=== PATIENT | male | born 1950 | race Caucasian/White ===

== ENCOUNTER → 2018-09-12 | Outpatient (CLI) | payer MEDICARE ==
[~2018-09-12] MED LIST: CLONIDINE0.1 PO; COLACE 100 MG100 MG PO; COUMADIN 4 MG TA4 M1 PO; COUMADIN6 MG PO; COZAAR 50 MG TA50 M2 PO; FOLIC ACID 40400 MCG PO; INDERAL80 MG PO; LASIX 20 MG TAB20 MG PO; METFORMIN HCL500 MG PO; NAPROSYN500 MG PO; NEXIUM40 MG PO; NORVASC 5 MG TAB5 MG PO; VITAMIN B-12500 MCG PO
[2018-09-12 10:07] LABS: CREATININE 0.9 mg/dL (0.6-1.3)
== END ==
LOC: M.CT 09:24
PROVIDERS: Internal Medicine
DX: R91.1 Solitary pulmonary nodule (principal)

== ENCOUNTER 2018-10-17 10:30 | Observation (INO) | payer MEDICARE ==
[~2018-10-17] VITALS: Ht 177.8 cm; Wt 113.4 kg
[2018-10-17] VITALS (18 sets, daily range): BP systolic 143–184; BP diastolic 61–99
--- NOTE | ~2018-10-17 | D ---
[address] [address] DISCHARGE SUMMARY Name: GARRETTRICARDAHEATH Crocker Room: [address] [place] MKatie#: [id number] Admission: 10/17/18 Attend Phys: Harjinder Moise MD, Discharge: 10/18/18 Date of : 52 Report #: [id number] THIS REPORT FOR: //name// CC: Kvng Moise DATE OF SERVICE: 10/18/2018 FINAL DISCHARGE DIAGNOSES: 1. Abnormal nuclear stress test. 2. Coronary artery disease. 3. Status post percutaneous coronary intervention with angioplasty and stenting of the circumflex at sequential sites. 4. Hypertension. 5. Hypercholesterolemia. 6. Degenerative joint disease. PROCEDURES: 10/17/2018 -- left heart catheterization, left ventriculography, selective coronary arteriography and percutaneous coronary intervention of the circumflex with deployment of 2 drug-eluting stents. HOSPITAL COURSE: The patient is a very pleasant 68-year-old male with underlying hypertension and hypercholesterolemia. He has described marked dyspnea with moderate exertion, which has increased over the last several weeks. Nuclear stress test was abnormal with inducible inferolateral ischemia. Given this data, Dr. Velazquez recommended proceeding with cardiac catheterization, which was undertaken on 10/17/2018. That study revealed a tandem 75 proximal and 90% mid circumflex stenosis with 40% distal narrowing. There were no hemodynamically significant stenoses of the left main, LAD or right coronary artery. Given this data, I deployed 2 drug-eluting stents, one in the proximal circumflex and one in the mid circumflex with a 10 and 0% residual narrowing following the stent deployment with 2 Colon drug-eluting stents deployed respectively. The patient did well post procedurally and ambulated in the hallways without difficulty with good hemostasis at the right femoral site of catheterization. LABORATORY DATA: On 10/18/2018 revealed a sodium 138, potassium 4.0, BUN 13, creatinine 0.8. Hemoglobin 14.6, white blood cell count 6000 with 207,000 platelets. Cholesterol 206, triglycerides 107, HDL 36, LDL 149 mg percent. DISCHARGE MEDICATIONS: The patient was discharged to home on the following medications: Amlodipine 10 mg daily, clonidine 0.1 mg as needed, vitamin B12 at 500 mcg b.i.d., folic acid, B complex vitamin 400 mcg b.i.d., metformin 500 [place] [address] DISCHARGE SUMMARY Name: HIRENLINDAGregRICARDAHEATH Crocker Room: [address] Janice#: [id number] Admission: 10/17/18 Attend Phys: Harjinder Moise MD, Discharge: 10/18/18 Date of : 52 Report #: [id number] daily to be started on 10/20/2018, prasugrel or Effient 10 mg daily with a 60 mg dose given buddy-procedurally, propranolol 80 mg daily, valsartan 40 mg daily, warfarin in his usual dose schedule monitored by at home protimes, Nexium 40 mg daily, Naprosyn 500 mg as needed, usually no more than once per day; omeprazole 20 mg on a p.r.n. basis. Given the elevated LDL cholesterol, initiated therapy with atorvastatin at 40 mg daily. Thus, the new medications added to his regimen were Effient and atorvastatin. The patient is scheduled to return to see a nurse practitioner in 3 weeks. At that point, clinical data will be reviewed and low-dose aspirin will be discontinued if the patient is clinically stable with a plan to see Dr. Velazquez in 6 weeks for clinical followup. By: [id number] Moise MD, [facility] /nt
[~2018-10-17 10:30] MED LIST changes: -NORVASC 5 MG TAB5 MG PO; +NORVASC5 MG PO
[2018-10-17 11:01] LABS: HEMATOCRIT 48.2 % (42.0-52.0); HEMOGLOBIN 16.1 gm/dL (14.0-18.0); MCH 28.4 pg (26.0-34.0); MCHC 33.5 g/dL (28.0-37.0); MCV 84.6 fL (80.0-100.0); MPV 8.9 fl. (7.2-11.1); RBC 5.69 mil/uL (4.50-6.00); RDW-CV 13.5 % (10.5-14.5); WBC 5.6 thou/uL (4.0-11.0)
[2018-10-17 11:13] LABS: CALCIUM 8.5 mg/dL (8.5-10.1); CREATININE 0.9 mg/dL (0.6-1.3)
[2018-10-17 11:15] LABS: APTT 32.2 Seconds (25.0-31.3); INR 1.1; PROTIME 11.2 Seconds (9.20-11.50)
[2018-10-17] MEDS ORDERED: B-121000 MCG PO (11:21)
[2018-10-17] MEDS ORDERED: FOLIC ACID1 MG PO (11:22)
[2018-10-17] MEDS ORDERED: NEXIUM 40 MG CA40 M1 PO (11:23)
[2018-10-17] MEDS ORDERED: DIOVAN40 MG PO (11:23)
[2018-10-17] MEDS ORDERED: METFORMIN HCL500 MG PO (11:24)
[2018-10-17] MEDS ORDERED: B-COMPLEX WIT400 MCG PO (11:25)
[2018-10-17] MEDS ORDERED: COUMADIN 5 MG TA5 M1 PO (11:27)
[2018-10-17] MEDS ORDERED: B-12500 MCG PO (11:28)
--- NOTE | 2018-10-17 15:50 | EKG ---
[place] [address] ELECTROCARDIOGRAM REPORT Name: GENA TUCKER Room: [address] M.R.#: [id number] Admission: 10/17/18 Attend Phys: Harjinder Moise MD, Discharge: Date of : 52 Report #: [id number] THIS REPORT FOR: //name// [facility] Test Date: 2018-10-17 Test Time: 11:21:53 Pat Name: GENA TUCKER Department: Room: [facility] Gender: M Lamp Wirer: : 1950 Requested By: Harjinder Moise Order Number: [id number] Sheela MD: Harjinder Moise Measurements Intervals [place] Rate: 54 P: 19 NE: 170 QRS: -7 QRSD: 104 T: 13 QT: 443 QTc: 420 Interpretive Statements Sinus rhythm Atrial premature complexes Compared to ECG 06/24/2006 15:01:48 Atrial premature complex(es) now present Left ventricular hypertrophy no longer present T-wave abnormality no longer present Possible ischemia no longer present Electronically Signed On 10-17-2018 15:50:24 FACULTY RESEARCH PHYSICIAN by Harjinder Moise [email or web address] <ELECTRONICALLY SIGNED> By: Harjinder Moise MD, [facility] 10/17/18 1550 1121 1121 Harjinder Moise MD, [facility] /EPI
--- NOTE | 2018-10-17 15:53 | EKG ---
[place] [address] ELECTROCARDIOGRAM REPORT Name: GENA TUCKER Room: [address] M.R.#: [id number] Admission: 10/17/18 Attend Phys: Harjinder Moise MD, Discharge: Date of : 52 Report #: [id number] THIS REPORT FOR: //name// [facility] Test Date: 2018-10-17 Test Time: 14:24:19 Pat Name: GENA TUCKER Department: Room: [facility] Gender: M Process Helper: : 1950 Requested By: Harjinder Moise Order Number: [id number] Sheela MD: Harjinder Moise Measurements Intervals [place] Rate: 50 P: 24 NC: 165 QRS: -2 QRSD: 108 T: 28 QT: 472 QTc: 431 Interpretive Statements Sinus rhythm Compared to ECG 06/24/2006 15:01:48 Left ventricular hypertrophy no longer present T-wave abnormality no longer present Electronically Signed On 10-17-2018 15:52:51 RACECAR DRIVER by Harjinder Moise [email or web address] <ELECTRONICALLY SIGNED> By: Harjinder Moise MD, [facility] 10/17/18 1552 1424 1424 Harjinder Moise MD, [facility] /EPI
[2018-10-17] MEDS ORDERED: PRILOSEC OTC20 MG PO (16:43)
--- NOTE | 2018-10-17 17:20 | NUR ---
VSS, ASSUMED CARE OF PT FROM DRY CLIPPER TENDER, ASSESSMENT PERFOMRED AND CHARTED, FALL PRECAUTIONS IN PLACE AND CALL LIGHT IN REACH, PT IS IN BED UNTIL 7PM, RIGHT GRION CATH SITE IS C/D/I, PT IS ON RA, A&O4, SR ON MONITOR, DENIES ANY PAIN WILL FOLLOW WITH PLAN OF CARE.
[2018-10-18] VITALS (7 sets, daily range): BP systolic 152–164; BP diastolic 62–72
[2018-10-18 04:54] LABS: HEMOGLOBIN 14.6 gm/dL (14.0-18.0); MCH 28.5 pg (26.0-34.0); MCHC 34.1 g/dL (28.0-37.0); MCV 83.7 fL (80.0-100.0); MPV 9.2 fl. (7.2-11.1); RBC 5.13 mil/uL (4.50-6.00); RDW-CV 13.6 % (10.5-14.5)
[2018-10-18 05:10] LABS: ALBUMIN 3.3 g/dL (3.4-5.0); ALKALINE PHOSPHATASE 57 U/L (46-116); ANION GAP 9 mmol/L (7-16); BUN 13 mg/dL (7-18); CALCIUM 8.4 mg/dL (8.5-10.1); CHLORIDE 103 mmol/L (98-107); CHOLESTEROL 206 mg/dL (<200); CO2 26 mmol/L (21-32); CREATININE 0.8 mg/dL (0.6-1.3); GLUCOSE 142 mg/dL (70-99); HDL CHOLESTEROL 36 mg/dL (>40); LDL CHOLESTEROL 149 mg/dL (<100); SGOT 17 U/L (15-37); SGPT 19 U/L (30-65); SODIUM 138 mmol/L (136-145); TC:HDL 5.7 Ratio (Not establshd); TOTAL BILIRUBIN 0.9 mg/dL (<0.1-1.0); TOTAL PROTEIN 6.2 g/dL (6.4-8.2); TRIGLYCERIDE 107 mg/dL (<150); VLDL 21 mg/dL (<40)
[2018-10-18 05:11] LABS: SERUM ASSESSMENT CLEAR
[2018-10-18 05:12] LABS: TROPONIN-I LEVEL 1.02 ng/mL (<0.06)
--- NOTE | 2018-10-18 06:42 | NUR ---
PROGRESSING TOWARDS GOALS, UP AD HARRY WITH SLOW STEADY GAIT, DENIES PAIN OR DISCOMFORT, OFF BR S/P CARDIAC CATHETERIZATION ON 10/17/18 AT 1900. DRESSING RIGHT GROIN ANGIOSEAL C/D/I, RIGHT GROIN REMAINS SOFT WITHOUT S/S OF HEMATOMA. SERUM NA IMPROVED FROM 135 ON 10/17/18 TO WNL 138 THIS AM. RESTING QUIELTY WITH EYES CLOSED MOST OF NOC, EASILY AROUSABLE TO VERBAL STIMULI, DENIES NEEDS AT PRESENT TIME, SB/SR TRACING HAT DESIGNER HR HIGH 50'S TO HIGH 60'S. PERIPHERAL IV SALINE LOCKED. CALL LIGHT IN REACH AT ALL TIMES.
[2018-10-18] MEDS ORDERED: ADULT ASPIRIN81 MG PO (11:05)
[2018-10-18] MEDS ORDERED: EFFIENT10 MG PO (11:12)
[2018-10-18] MEDS ORDERED: ATORVASTATIN CA40 MG PO (11:19)
--- NOTE | 2018-10-18 11:32 | CARD ---
[address] [address] CARDIAC CATH REPORT Name: GENA TUCKER Room: [address] M.RJoe#: [id number] Admission: 10/17/18 Attend Phys: Harjinder Moise MD, Discharge: Date of : 52 Report #: [id number] THIS REPORT FOR: //name// APPROVED REPORT Study performed: 10/17/2018 10:46:51 Patient Details Patient Status: Out-Patient Room #: The patient is a 68 year-old male Event Personnel Harjinder Moise Nail Galvanizer, Charley Carlton RN Mold Setter, Rina Wagoner Haley, Jessica RTR Monitor, Wyatt Mendoza Monitor, Sandra Crawley RN Mold Setter Procedures Performed Art Access - R femoral artery* Left Heart Cath w/or w/o Coronaries C LINO Place w/wo Plasty Single CIRC Hemostasis w/ Angioseal Indication Positive stress test Risk Factors Hypercholesterolemia, Hypertension Admission/Lab Medications/Medications given during procedure Aspirin, Platelet Aff. Inhib., Angiomax bolus and infusion Procedure Narrative The patient was brought electively to the Cardiac Catheterization Laboratory and was prepped and draped in a sterile manner. The right femoral was infiltrated with 2% Lidocaine subcutaneous anesthesia. A [place] 6 FR sheath was inserted into the right femoral artery. Coronary angiography was performed using coronary diagnostic catheters. The right coronary system was accessed and visualized with a Diagnostic 6Fr JR4 catheter. The left coronary system was accessed and visualized with a Diagnostic 6Fr JL4 catheter. The left ventricle was accessed and visualized with a Diagnostic 6Fr straight pightail catheter. Left ventricular/Aortic Valve gradient assessed via catheter pullback. Pre-demployment femoral angiogram was performed . Closure device was deployed with a Fr Angioseal STS 6Fr. Hemostasis was obtained with manual pressure following sheath removal without any complications. The patient tolerated the [place] [address] CARDIAC CATH REPORT Name: GENA TUCKER Room: [address] M.R.#: [id number] Admission: 10/17/18 Attend Phys: Harjinder Moise MD, Discharge: Date of : 52 Report #: [id number] were no complications associated with the procedure. There was no hematoma. Intraoperative Conscious Sedation Sedation start time: 1149 Case end Time: 1300 Fentanyl 50 mcg Versed 3 mg Fluoro Time: 16.8 minutes Dose: DAP [id number] cGycm2 2538 mGy Contrast Type and Amount: Visipaque 400 ml Diagnostic Cath Left Main 10% distal narrowing LAD Tortuosity with 30% mid vessel narrowing Circumflex Moderate size nondominant vessel with 75% proximal 90% mid and 40% distal stenosis Right Coronary Dominant vessel with 0% narrowing Left Ventriculography The left ventricle is normal in size with normal contractility. The left ventricular ejection fraction is estimated to be 60%. Left ventricular wall motion abnormalities are not present. There is no mitral insufficiency. Hemodynamics The aortic pressure is 176/73 mmHg with a mean of 109 mmHg. The left ventricular end diastolic pressure is 12 mmHg. Pullback from the left ventricle to the aorta revealed no gradient across the aortic valve. PCI Technique Lesion Anticoagulation was achieved with Angiomax. Percutaneous coronary intervention was performed on the mid circumflex artery segment. The lesion stenosis prior to intervention was 90% with TERESA 3 flow. A 6FR XB 3.0 100CM Guide Catheter was used to engage the ostium. A BMW 190cm Interventional Guidewire was used to cross the lesion. BALLOON DILATION A Balloon catheter NC Trek RX 2.25 X 8 was inserted and inflated up to 8.00atm for 8seconds. Additional Inflation: 6.00atm for 9seconds. Additional Inflation: 12.00atm for 11seconds. STENT DEPLOYMENT A drug-eluting stent Xience Jessica [id number] was inserted and inflated up to 10.00atm for 10seconds. Additional Inflation: 10.00atm [place] [address] CARDIAC CATH REPORT Name: MATHEWGregGENA Room: [address] M.RJoe#: [id number] Admission: 10/17/18 Attend Phys: Harjinder Moise MD, Discharge: Date of : 52 Report #: [id number] for 11seconds. POST STENT DEPLOYMENT BALLOON DILATION A Balloon catheter NC Trek RX 2.25 X 8 was inserted and inflated up to 14.00atm for 9seconds. Final angiography reveals 0 % stenosis with TERESA 3 flow. PCI Technique Lesion 2 Percutaneous Coronary Intervention was performed on the proximal circumflex artery segment. The lesion stenosis prior to intervention was 75% with TERESA 3 flow. A 6FR XB 3.0 100CM Guide Catheter was used to engage the ostium. A BMW 190cm Interventional Guidewire was used to cross the lesion. Balloon Dilation A Balloon catheter Trek RX 2.25 X 8 was inserted and inflated up to 14.00atm for 8seconds. Stent Deployment A drug-eluting stent Xience Jessica [id number] was inserted and inflated up to 12.00atm for 16seconds. Additional Inflation: 16.00atm for 9seconds. Additional Inflation: 17.00atm for 11seconds. Post Stent Deployment Balloon Dilation A Balloon catheter NC Trek RX 2.25 X 8 was inserted and inflated up to 18.00atm for 9seconds. Final angiography reveals 10 % stenosis with TERESA 3 flow. Conclusion #1 significant coronary artery disease characterized by the following: A 10% distal left main coronary artery narrowing B prominent LAD system with 30% mid LAD narrowing C nondominant circumflex with 75% proximal 90% mid and 40% distal stenosis D dominant right coronary artery with 0% narrowing #2 normal left ventricular systolic function, estimated ejection fraction being 60% [place] [address] CARDIAC CATH REPORT Name: GENA TUCKER Room: [address] [place] M.R.#: [id number] Admission: 10/17/18 Attend Phys: Harjinder Moise MD, Discharge: Date of : 52 Report #: [id number] #3 moderate systemic systolic hypertension with normal left ventricular end-diastolic pressure at rest #4 successful percutaneous coronary intervention with deployment of sequential drug-eluting stents at the sites of 75% proximal and 90% midcircumflex stenosis with 10 and 0% residual narrowing and TERESA-3 flow to the distal vessel Recommendations Cardiac Risk Reduction Program Aggressive Medical Therapy Medications Administered Aspirin (any) Prasugrel Diagnostic Cath Approved by: Harjinder Moise MD Date/Time: 10/18/2018 11:31:00 <ELECTRONICALLY SIGNED> By: Harjinder Moise MD, [facility] 10/18/18 1132 113 113Harjinder Moise MD, FAC /INF
--- NOTE | 2018-10-18 12:13 | NUR ---
ASSUMED PT Care report received from nurse.pt is aox4 sr on alarm security or surveillance monitor. on ra. ready to discharge . dr murray wrote dc orders see chart. dc instructions given. metofrmin to be restarted on saturday. new scri[ts given. pt states understanding. will continue to monitor
--- NOTE | 2018-10-18 12:42 | EKG ---
[place] [address] ELECTROCARDIOGRAM REPORT Name: GENA TUCKER Room: [address] M.R.#: [id number] Admission: 10/17/18 Attend Phys: Harjinder Moise MD, Discharge: Date of : 52 Report #: [id number] THIS REPORT FOR: //name// [facility] Test Date: 2018-10-18 Test Time: 08:05:15 Pat Name: GENA TUCKER Department: Room: [facility] Gender: M Extension Course Coordinator: [facility] : 1950 Requested By: Harjinder Moise Order Number: [id number] Reading MD: Marcelo Osborn Measurements Intervals [place] Rate: 57 P: 20 SD: 165 QRS: -19 QRSD: 106 T: 4 QT: 451 QTc: 440 Interpretive Statements Sinus rhythm Borderline left axis deviation Baseline wander in lead(s) V3 Compared to ECG 10/17/2018 14:24:19 No significant changes Electronically Signed On 10-18-2018 12:42:39 TEACHER OF THE HANDICAPPED by Marcelo Osborn [email or web address] <ELECTRONICALLY SIGNED> By: Marcelo Osborn MD, FACC 10/18/18 1242 0805 0805 Marcelo Osborn MD, [facility] /EPI
== END 2018-10-18 11:40 | disposition home or self-care (01) ==
LOC: M.CL 10:30 → M.TBA-CV 13:21 → M.2W 15:20
PROVIDERS: ADMIT Internal Medicine
DX: I25.10 Atherosclerotic heart disease of native coronary artery without angina pectoris (principal); I10 Essential (primary) hypertension; E78.00 Pure hypercholesterolemia, unspecified; M19.90 Unspecified osteoarthritis, unspecified site

== ENCOUNTER → 2018-10-30 | Outpatient (CLI) | payer MEDICARE ==
[~2018-10-30] MED LIST changes: +ADULT ASPIRIN81 MG PO; +ATORVASTATIN CA40 MG PO; +B-121000 MCG PO; +B-12500 MCG PO; +B-COMPLEX WIT400 MCG PO; +CIPROFLOXACIN500 M1 PO; +COUMADIN 5 MG TA5 M1 PO; +DIOVAN40 MG PO; +EFFIENT10 MG PO; +FLAGYL500 M1 PO; +FLEXERIL PO; +FOLIC ACID1 MG PO; +NEXIUM 40 MG CA40 M1 PO; +NORCO 5-325 TA1 EACH PO; +PRILOSEC OTC20 MG PO; +VITAMIN D3400 UNIT PO
== END ==
LOC: M.ULTRA 13:24
DX: R10.9 Unspecified abdominal pain (principal)

== ENCOUNTER → 2018-10-31 | Outpatient (CLI) | payer MEDICARE ==
[2018-10-31 11:01] LABS: ABSOLUTE BASOPHILS 0.1 thou/uL (0.0-0.2); ABSOLUTE EOSINOPHILS 0.3 thou/uL (0.0-0.7); ABSOLUTE LYMPHOCYTES 1.3 thou/uL (0.8-5.3); ABSOLUTE MONOCYTES 0.4 thou/uL (0.0-1.2); BASOPHILS 1.3 %; EOSINOPHILS 4.5 %; HEMATOCRIT 45.4 % (42.0-52.0); HEMOGLOBIN 15.8 gm/dL (14.0-18.0); LYMPHOCYTES 21.7 %; MCH 29.3 pg (26.0-34.0); MCHC 34.8 g/dL (28.0-37.0); MONOCYTES 6.4 %; MPV 8.8 fl. (7.2-11.1); NUCLEATED RBCS 0 /100WBC; PLATELET COUNT* 267 thou/uL (150-400); POLYS 66.1 %; RBC 5.41 mil/uL (4.50-6.00); RDW-CV 13.4 % (10.5-14.5)
[2018-10-31 11:16] LABS: ALBUMIN 3.8 g/dL (3.4-5.0); CALCIUM 8.6 mg/dL (8.5-10.1); CREATININE 0.9 mg/dL (0.6-1.3); TOTAL BILIRUBIN 0.5 mg/dL (<0.1-1.0); TOTAL PROTEIN 7.3 g/dL (6.4-8.2)
== END ==
LOC: M.LAB 10:41
PROVIDERS: Nurse Practitioner
DX: I10 Essential (primary) hypertension (principal); R10.9 Unspecified abdominal pain; Z86.718 Personal history of other venous thrombosis and embolism

== ENCOUNTER 2018-11-01 06:50 | Emergency (ER) | payer MEDICARE ==
[~2018-11-01] VITALS: Ht 182.9 cm; Wt 113.4 kg
[~2018-11-01 06:50] MED LIST changes: -CIPROFLOXACIN500 M1 PO; -FLAGYL500 M1 PO; -FLEXERIL PO; -NORCO 5-325 TA1 EACH PO; -VITAMIN D3400 UNIT PO
[2018-11-01] MEDS ORDERED: VITAMIN D3400 UNIT PO (07:09)
[2018-11-01 08:01] LABS: URINE BILIRUBIN NEGATIVE (Negative); URINE BLOOD NEGATIVE (Negative); URINE CLARITY CLEAR; URINE COLOR YELLOW; URINE GLUCOSE-RANDOM TRACE (Negative); URINE KETONES NEGATIVE (Negative); URINE LEUKOCYTES-REFLEX NEGATIVE (Negative); URINE NITRITE-REFLEX NEGATIVE (Negative); URINE PROTEIN NEGATIVE (Negative); URINE SPECIFIC GRAVITY <= 1.005 (1.005-1.030); URINE UROBILINOGEN 0.2 E.U./dl (0.2-1.0)
[2018-11-01 08:12] LABS: ABSOLUTE BASOPHILS 0.1 thou/uL (0.0-0.2); ABSOLUTE EOSINOPHILS 0.2 thou/uL (0.0-0.7); ABSOLUTE LYMPHOCYTES 1.2 thou/uL (0.8-5.3); ABSOLUTE MONOCYTES 0.4 thou/uL (0.0-1.2); ABSOLUTE NEUTROPHILS 3.3 thou/uL (1.6-8.1); BASOPHILS 1.1 %; EOSINOPHILS 4.7 %; HEMATOCRIT 46.1 % (42.0-52.0); HEMOGLOBIN 15.8 gm/dL (14.0-18.0); LYMPHOCYTES 23.5 %; MCHC 34.3 g/dL (28.0-37.0); MCV 84.7 fL (80.0-100.0); MONOCYTES 7.5 %; NUCLEATED RBCS 0 /100WBC; PLATELET COUNT* 252 thou/uL (150-400); POLYS 63.2 %; RBC 5.44 mil/uL (4.50-6.00); RDW-CV 13.8 % (10.5-14.5); WBC 5.3 thou/uL (4.0-11.0)
[2018-11-01 08:19] LABS: CALCIUM 8.1 mg/dL (8.5-10.1); CREATININE 0.8 mg/dL (0.6-1.3)
[2018-11-01 08:21] LABS: APTT 37.8 Seconds (25.0-31.3); INR 2.3; PROTIME 23.1 Seconds (9.20-11.50)
[2018-11-01 08:28] LABS: ALBUMIN 3.8 g/dL (3.4-5.0); TOTAL BILIRUBIN 0.7 mg/dL (<0.1-1.0); TOTAL PROTEIN 7.5 g/dL (6.4-8.2)
[2018-11-01] MEDS ORDERED: CIPROFLOXACIN500 M1 PO (08:34)
[2018-11-01] MEDS ORDERED: FLAGYL500 M1 PO (08:34)
[2018-11-01] MEDS ORDERED: FLEXERIL PO (08:34)
[2018-11-01] MEDS ORDERED: NORCO 5-325 TA1 EACH PO (08:34)
[2018-11-01 08:42] VITALS: BP 152/63
--- NOTE | 2018-11-01 09:02 | EKG ---
[place] [address] ELECTROCARDIOGRAM REPORT Name: GENA TUCKER [id number] Admission: 11/01/18 Attend Phys: Discharge: 11/01/18 Date of : 52 Report #: [id number] THIS REPORT FOR: //name// [facility] ED Test Date: 2018-11-01 Test Time: 07:55:28 Pat Name: GENA TUCKER Department: Room: Gender: M Lining Cutter: JOSE ANGEL : 1950 Requested By: Javed Adams Order Number: [id number] MD: Kvng Velazquez Measurements Intervals [place] Rate: 55 P: 23 MO: 177 QRS: -18 QRSD: 106 T: 9 QT: 456 QTc: 437 Interpretive Statements Sinus rhythm Borderline left axis deviation Compared to ECG 10/18/2018 08:05:15 No significant changes Electronically Signed On 11-01-2018 9:01:59 ALGOLOGIST by Kvng Velazquez [email or web address] <ELECTRONICALLY SIGNED> By: Kvng Velazquez MD, [facility] 11/01/18 0901 D: 01/5 0755 Kvng Velazquez MD, FACC /EPI
== END 2018-11-01 08:43 | disposition home or self-care (01) ==
LOC: M.ERS 06:50
PROVIDERS: Family Medicine
DX: K57.32 Diverticulitis of large intestine without perforation or abscess without bleeding (principal); M54.5 Low back pain

== ENCOUNTER → 2018-12-03 | Outpatient (CLI) | payer MEDICARE ==
[~2018-12-03] MED LIST changes: +CIPROFLOXACIN500 M1 PO; +FLAGYL500 M1 PO; +FLEXERIL PO; +NORCO 5-325 TA1 EACH PO; +VITAMIN D3400 UNIT PO
== END ==
LOC: M.RAD 17:18
DX: M79.9 Soft tissue disorder, unspecified (principal); M25.571 Pain in right ankle and joints of right foot; M25.551 Pain in right hip

== ENCOUNTER → 2019-09-29 | Outpatient (CLI) | payer MEDICARE ==
[2019-09-29 08:05] LABS: PROTIME 10.3 Seconds (9.20-11.50)
== END ==
LOC: M.LAB 05:23
PROVIDERS: Anesthesiology
DX: E11.9 Type 2 diabetes mellitus without complications (principal); R79.1 Abnormal coagulation profile

== ENCOUNTER → 2019-11-24 | Outpatient (CLI) | payer MEDICARE ==
[2019-11-24 09:57] LABS: INR 1.8; PROTIME 18.4 Seconds (9.20-11.50)
== END ==
LOC: M.LAB 11-23 09:00 → M.RAD 11-23 10:00 → M.LAB 08:57
PROVIDERS: Orthopaedic Surgery
DX: M25.50 Pain in unspecified joint (principal)